=== PATIENT | female | born 1980 | race Asian ===

== ENCOUNTER 2016-06-18 10:14 | Inpatient (IN) | payer BC ==
[2016-06-18] MEDS ORDERED: ceFAZolin 2 GM/DEXTROSE 100 ML IV ONE (10:26)
[2016-06-18] MEDS ORDERED: CITRIC ACID/SODIUM CITRATE 30 ML UDCUP PO ONE (10:26)
[2016-06-18] MEDS ORDERED: LR 500 ML IV ONE (10:26)
[2016-06-18] MEDS ORDERED: LR 1,000 ML IV SCH (10:30)
[2016-06-18 11:26] LABS: % IMMATURE GRANULYOCYTES 1.3 % (0.0-1.1); ABSOLUTE IMMATURE GRANULOCYTES 0.08 10^3/uL (0.00-0.10); ADD DIFF? NO; ADD MORPH? NO; ADD SCAN? NO; ATYPICAL LYMPHOCYTE FLAG 20 (0-99); FRAGMENT RBC FLAG 0 (0-99); HEMATOCRIT 38.6 % (38.0-47.0); HEMOGLOBIN 13.3 g/dL (12.6-16.3); LEFT SHIFT FLG 0 (0-99); LIPEMIA HEMOLYSIS FLAG 90 (0-99); MEAN CELL HEMOGLOBIN 35.7 pg (27.9-34.1); MEAN CELL HEMOGLOBIN CONCENTR. 34.5 g/dL (32.4-36.7); MEAN CELL VOLUME 103.5 fL (81.5-99.8); MEAN PLATELET VOLUME 11.9 fL (8.7-11.7); PLATELET CLUMPS FLAG 0 (0-99); PLATELET COUNT 192 10^3/uL (150-400); RED BLOOD CELL COUNT 3.73 10^6/uL (4.18-5.33); RED CELL DISTRIBUTION WIDTH 12.1 % (11.5-15.2)
[2016-06-18] MEDS ORDERED: CEFAZOLIN 2 GM/DEXTROSE/100 ML BAG IV ONE (11:36)
[2016-06-18] MEDS ORDERED: morphINE PF 5 MG/10 ML INJ ONE (12:00)
[2016-06-18] MEDS ORDERED: fentaNYL 100 MCG/2 ML INJ ONE (12:00)
[2016-06-18] MEDS ORDERED: SIMETHICONE 80 MG TAB CHEW PO PRN (12:14)
[2016-06-18] MEDS ORDERED: ONDANSETRON 4 MG/2 ML VIAL ONE (12:21)
[2016-06-18] MEDS ORDERED: DEXAMETHASONE 4 MG/ML VIAL ONE ×2 (12:21)
[2016-06-18] MEDS ORDERED: OXYTOCIN 100 UNITS/10 ML VIAL ONE (12:21)
[2016-06-18] MEDS ORDERED: PHENYLEPHRINE HCL 100 MCG/ML SYR ONE ×3 (12:21→12:50)
--- NOTE | 2016-06-18 13:04 | OBPROC ---
- Delivery Pre-op Diagnoses: Breech presentation Post-op Diagnoses: Breech presentation Procedure: Primary Surgeon: Tracy Salamanca Beauty Culture Teacher: Lilibeth Jack Anesthesiologist: Power Ballesteros Shrimper/[employer]: Isis Adams Anesthesia: Spinal Complications: None IV Fluid (ml): 2,800 EBL: 1000 - [place] Info Infant A Delivery Date: 06/18/16 Delivery Time: 12:39 Sex of : Female Score (1 Min): 8 Score (5 Min): 8
--- NOTE | 2016-06-18 13:30 | GOP ---
[f rep st] OPERATIVE REPORT DATE OF OPERATION: 06/18/2016 SURGEON: Tracy Sage MD SANDWICH ARTIST: Lilibeth Jack CNM. ANESTHESIA: Spinal. PREOPERATIVE DIAGNOSIS: Intrauterine at 39-1/7 weeks' gestation with breech presentation. POSTOPERATIVE DIAGNOSIS: Intrauterine at 39-1/7 weeks gestation with breech presentation. PROCEDURE PERFORMED: Primary low transverse section. FINDINGS: Viable female , Apgars 8 and 8, born at 12:39, EBL 1000 mL. INDICATIONS: The patient is a G2, P0 female who is at39-1/7 weeks' gestation with breech presentati on, desires delivery. DESCRIPTION OF PROCEDURE: The patient was taken to the operating room. She was prepped and draped under normal sterile fashion in the dorsal supine position with a leftward tilt. The patient receiv ed 2 g of Ancef preoperatively. A Pfannenstiel skin incision was made with a scalpel and carried th rough to the underlying fascia. The fascia was incised in the midline and extended laterally. The superior aspect of the fascia was grasped with Triny clamps. The rectus muscles dissected off blun tly and with the Bovie cautery. The inferior aspect of the fascia was grasped with Triny clamps. The rectus muscles dissected off bluntly and with the Bovie cautery. The peritoneum was identified and entered in bluntly. The bladder blade was placed. The vesicouterine peritoneum was incised wit h the Metzenbaum scissors, and the bladder flap was created digitally. The bladder blade was replac ed. The uterus was incised. The was delivered. The cord was clamped and cut. Cord blood w as obtained. The infant was handed to the nurse practitioner. The placenta was delivered spontaneously. The uterus was exteriorized and cleared of all clots and debris. The uterine incisi on was reapproximated with 0 Monocryl in a running, locked fashion in 2 layers. The uterus was retu rned to the abdomen. The gutters were cleared of all clots and debris. The uterine incision was re inspected and noted to be hemostatic. The subfascial spaces were inspected and made hemostatic. Th e fascia was reapproximated with 0 Vicryl in a running fashion. The subcutaneous tissue was irrigat ed and closed with 3-0 Vicryl. The skin was closed with 4-0 Monocryl. All counts were correct x2. COMPLICATIONS: None. OUTCOME: Stable to recovery room. /[id number]/MODL
[2016-06-18] MEDS ORDERED: PHENYLEPHRINE HCL 100 MCG/ML SYR IVP PRN (15:01)
[2016-06-18] MEDS ORDERED: NALOXONE HCL 0.4 MG/ML INJ IVP PRN (15:01)
[2016-06-18] MEDS ORDERED: ONDANSETRON 4 MG/2 ML VIAL IVP PRN (15:01)
--- NOTE | 2016-06-18 15:06 | POSTANESTH ---
Post Anesthetic Evaluation Cardiovascular Status: Normal, Stable Respiratory Status: Normal, Stable, Similar to Pre-op Cond. Level of Consciousness/Mental Status: Can Participate in Eval, Alert and Oriented (Tolerated spinal well, BP treated, comfortable for surgery, to PACU, no pain or nausea.) Pain Control: Adequate, Prn Tx Ordered Nausea/Vomiting Control: Adequate, Prn Tx Ordered Complications Possibly Related to Anesthesia: None Noted
--- NOTE | 2016-06-18 15:09 | PREANESOB ---
Obstetric Pre-Anesthesia Info - General Info Proposed Procedure: C Section for breech. : 2 Para: 1 WBD: 39 - Info Status: Full Term Monitors: External FHR Baseline (bpm): 150 FHR Pattern: Reassuring - Labor Status Indications for Current Section: Breech Labor Epidural: No Anesthesia ROS: Prior non OB anesthesia without problems. Allergies/Adverse Reactions: Allergy/AdvReac Type Severity Reaction Status Date / Time No Known Allergies Allergy Unverified 07/20/15 10:00 Home Medications: Medication Instructions Recorded IRON PO DAILY 06/18/16 Vit27&Calcium/Iron/FA 1 each PO DAILY 06/18/16 [ Rx 1 Tablet (RX)] Visit Medications: Generic Name Dose Route Start Last Admin Trade Name Freq PRN Reason Stop Dose Admin Hydrocodone Bitart/Acetaminophen 1 - 2 tab 06/18/16 12:14 [place] 5/325 PO 06/28/16 12:13 Q4HRS PRN Pain, Moderate Diphenhydramine HCl 25 - 50 mg 06/18/16 15:01 Benadryl Injection IVP 12/15/16 15:00 Q6HRS PRN Itching Docusate Sodium 100 mg 06/18/16 12:14 Colace PO 12/15/16 12:13 BID PRN Constipation Lactated Ringer's 1,000 mls @ 125 mls/hr 06/18/16 10:30 06/18/16 11:15 Lr IV 12/15/16 10:29 1,000 mls CONT MARIUM Administration Ketorolac Tromethamine 30 mg 06/18/16 18:00 Toradol IVP 06/19/16 12:01 Q6HRS MARIUM Naloxone HCl 0.4 mg 06/18/16 15:01 Narcan IVP 06/19/16 15:03 PRN PRN respiratory depression Ondansetron HCl 4 mg 06/18/16 15:01 Zofran IVP 12/15/16 15:00 Q4HRS PRN Nausea/Vomiting, Can't Take PO Phenylephrine HCl 100 mcg 06/18/16 15:01 Behzad-Synephrine IVP 06/18/16 16:02 Q1M PRN Hypotension Simethicone 80 mg 06/18/16 12:14 Mylicon PO 12/15/16 12:13 .TIDMEALS AND HS PRN Gas Discontinued Medications Generic Name Dose Route Start Last Admin Trade Name Abelino PRN Reason Stop Dose Admin Cefazolin Sodium/Dextrose Confirm 06/18/16 11:36 Ancef 2 Gm (Premix) Administered 06/18/16 11:37 Dose 2 gm IV .STK-MED ONE Citric Acid/Sodium Citrate 30 ml 06/18/16 10:26 06/18/16 11:53 Bicitra PO 06/18/16 10:27 30 ml ONCALL ONE Administration Dexamethasone Confirm 06/18/16 12:21 Decadron Injection Administered 06/18/16 12:22 Dose 4 mg .ROUTE .STK-MED ONE Dexamethasone Confirm 06/18/16 12:21 Decadron Injection Administered 06/18/16 12:22 Dose 4 mg .ROUTE .STK-MED ONE Fentanyl Confirm 06/18/16 12:00 Sublimaze Administered 06/18/16 12:01 Dose 100 mcg .ROUTE .STK-MED ONE Cefazolin Sodium/Dextrose 100 mls @ 200 mls/hr 06/18/16 10:26 06/18/16 11:55 Ancef 2 Gm (Premix) IV 06/18/16 10:55 100 mls ONCALL ONE Administration Protocol Lactated Ringer's 500 mls @ 0 mls/hr 06/18/16 10:26 Lr IV 06/18/16 10:27 ONCE ONE As Directed Morphine Sulfate Confirm 06/18/16 12:00 Morphine Pf 5 Mg/10 Ml Administered 06/18/16 12:01 Dose 5 mg .ROUTE .STK-MED ONE Ondansetron HCl Confirm 06/18/16 12:21 Zofran Administered 06/18/16 12:22 Dose 8 mg .ROUTE .STK-MED ONE Oxytocin Confirm 06/18/16 12:21 Pitocin Administered 06/18/16 12:22 Dose 100 units .ROUTE .STK-MED ONE Phenylephrine HCl Confirm 06/18/16 12:21 Behzad-Synephrine Administered 06/18/16 12:22 Dose 1,000 mcg .ROUTE .STK-MED ONE Phenylephrine HCl Confirm 06/18/16 12:31 Behzad-Synephrine Administered 06/18/16 12:32 Dose 1,000 mcg .ROUTE .STK-MED ONE Phenylephrine HCl Confirm 06/18/16 12:50 Behzad-Synephrine Administered 06/18/16 12:51 Dose 1,000 mcg .ROUTE .STK-MED ONE - Anesthesia History Response to Local Anesthetics: Normal Anesthesia & Operative History: No Prior Problems Family Anesthesia History: Negative - Social History Substance Use/Abuse: Denies - Focused Exam Latest Vital Signs (Nursing): Temp Pulse Resp BP Pulse Ox 36.2 C 85 108/59 L 93 06/18/16 13:40 06/18/16 13:40 06/18/16 13:40 06/18/16 13:40 Blood Pressure: 119/76 Heart Rate: 82 Height/Weight (Nursing): Height 161.29 cm Weight 80.739 kg Physical Exam: Within normal limits. ASA Status: II Labs: 06/18/16 Unknown Patient ABO/Rh B POSITIVE 06/18/16 11:25 - Plan Consent Signed and on Chart: Yes Patient/Guardian Understands and Agrees to Plan: Yes
[2016-06-18] MEDS: KETOROLAC 30 MG/1 ML SDV IVP SCH (18:59)
[2016-06-19] MEDS: KETOROLAC 30 MG/1 ML SDV IVP SCH ×3 (00:33→12:35)
--- NOTE | 2016-06-19 08:10 | SOAPPROG ---
SOAP Progress Note Assessment/Plan: Assessment: 36 female PPD #1 s/p primary C/S for breech. Recovering well with good pain control. / pumping. Plan: Routine / post-op care. D/C mojica, IVBC, plexi-pulse stocking and abdominal bandage. Encourage ambulation. consult PRN. 06/19/16 08:06 Subjective: Reports feeling well with good pain control. / pumping. Incision CDI. Eating and drinking well without n/v. Appropriate mood with good support system. Objective: Vital Signs Temp Pulse Resp BP Pulse Ox 37.1 C 70 14 99/59 L 97 06/19/16 04:00 06/19/16 06:00 06/19/16 06:00 06/19/16 04:00 06/19/16 06:00 Laboratory Results 06/19/16 04:30 06/18/16 06/19/16 06/20/16 05:59 05:59 05:59 Intake Total 5450 Output Total 4050 Balance 1400 - Time Spent With Patient Time Spent With Patient: 20 minutes - Pending Discharge Pending Discharge Within 24 Hours: No Pending Discharge Within 48 Hours: Yes Pending Discharge Date: 06/21/16 Pending Discharge Time: 11:00 Physical Exam - Physical Exam General Appearance: WD/WN, alert, no apparent distress EENT: normal ENT inspection Neck: non-tender, full range of motion, normal inspection Respiratory: lungs clear, normal breath sounds Cardiac/Chest: regular rate, rhythm Abdomen: non-tender, soft Pelvic Exam: normal external exam Rectal: deferred Back: Normal inspection Skin: normal color, warm/dry Lymphatic: no adenopathy Extremities: non-tender, normal inspection Neuro/Psych: alert, normal mood/affect, oriented x 3 ICD10 Worksheet Patient Problems: Problems Problem Status Onset delivery indicated due to breech presentation Acute
[2016-06-19] MEDS: IRON POLYSAC/IRON HEME 28 MG TAB PO SCH (13:35)
[2016-06-19] MEDS: DOCUSATE SODIUM 100 MG CAP PO PRN (13:36)
[2016-06-19] MEDS: HYDROCODONE/APAP 5/325 TAB PO PRN ×3 (13:41→23:33)
[2016-06-19] MEDS: IBUPROFEN 600 MG TAB PO PRN (19:18)
[2016-06-20] MEDS: IBUPROFEN 600 MG TAB PO PRN ×4 (01:48→21:02)
[2016-06-20] MEDS: IRON POLYSAC/IRON HEME 28 MG TAB PO SCH (07:56)
[2016-06-20] MEDS: HYDROCODONE/APAP 5/325 TAB PO PRN ×3 (07:56→16:49)
[2016-06-20] MEDS: DOCUSATE SODIUM 100 MG CAP PO PRN (07:56)
--- NOTE | 2016-06-20 08:32 | SOAPPROG ---
SOAP Progress Note Assessment/Plan: Assessment: POD#2 s/p pLTCS for breech VSS Pain controlled Incision c/d/i Unclear etiology of intermittent chest pressure, is mild, no SOB/CP, normal exam. Will continue to monitor and consider further work-up if worsening or occurring more frequently Rh pos, Rub imm, s/p flu and tdap vaccines Plan: Routine post-op care Plan home tomorrow Routine precautions discussed Monitor symptom of chest pressure 06/20/16 08:30 Subjective: Kirsten/stacey working for pain control. Has intermittent feeling of mild chest pressure right in her mid chest between breasts, intermittent sensation that is only brief, but no shortness of breath, chest pain, dizziness, dyspnea. Ambulating, tolerating regular diet, had BM this AM. BF going well Objective: Vital Signs Temp Pulse Resp BP Pulse Ox 36.8 C 86 18 117/70 95 06/19/16 20:18 06/19/16 20:18 06/19/16 20:18 06/19/16 20:18 06/19/16 20:18 Laboratory Results 06/19/16 04:30 06/19/16 06/20/16 06/21/16 05:59 05:59 05:59 Intake Total 5450 Output Total 4050 3200 Balance 1400 -3200 Gen: sitting up , NAD, alert, awake Resp: unlabored CV: RRR Chest: nontender chest wall Abd: appropriately distended, soft, minimally tender Incision: c/d/i with steri strips Ext: no edema ICD10 Worksheet Patient Problems: Problems Problem Status Onset delivery indicated due to breech presentation Acute
[2016-06-21] MEDS: IBUPROFEN 600 MG TAB PO PRN ×4 (02:31→22:37)
--- NOTE | 2016-06-21 08:06 | SOAPPROG ---
SOAP Progress Note Assessment/Plan: Assessment: 36 female PPD #3 s/p primary C/S for breech. Recovering well with good pain control. Incision CDI. Ambulating well. / pumping. Plan: Routine / post-op care. consult to assist with pumping and supplementation. 06/19/16 08:06 06/21/16 08:02 Subjective: Reports experiencing good pain control. / pumping. Incision CDI. Ambulating well without vertigo. Eating and drinking well without vertigo. Appropriate mood with good support system. Planning on staying until tomorrow. Objective: Vital Signs Temp Pulse Resp BP Pulse Ox 36.6 C 84 16 116/75 95 06/20/16 20:00 06/20/16 20:00 06/20/16 20:00 06/20/16 20:00 06/20/16 20:00 Laboratory Results 06/19/16 04:30 06/20/16 06/21/16 06/22/16 05:59 05:59 05:59 Output Total 3200 Balance -3200 - Time Spent With Patient Time Spent With Patient: 20 minutes - Pending Discharge Pending Discharge Within 24 Hours: Yes Pending Discharge Date: 06/22/16 Pending Discharge Time: 11:00 Physical Exam - Physical Exam General Appearance: WD/WN, alert, no apparent distress EENT: normal ENT inspection Neck: non-tender, full range of motion, normal inspection Respiratory: lungs clear, normal breath sounds Cardiac/Chest: regular rate, rhythm Abdomen: non-tender, soft Pelvic Exam: normal external exam Rectal: deferred Back: Normal inspection Skin: normal color, warm/dry Lymphatic: no adenopathy Extremities: normal range of motion, non-tender, normal inspection Neuro/Psych: alert, normal mood/affect, oriented x 3 ICD10 Worksheet Patient Problems: Problems Problem Status Onset delivery indicated due to breech presentation Acute
[2016-06-21] MEDS: DOCUSATE SODIUM 100 MG CAP PO PRN ×2 (08:35→22:37)
[2016-06-21] MEDS: IRON POLYSAC/IRON HEME 28 MG TAB PO SCH (16:29)
[2016-06-21 20:10] VITALS: BP 122/81; PULSE 78; RESP 16; TEMP 97.7; O2SAT 96
[2016-06-22] MEDS: IBUPROFEN 600 MG TAB PO PRN ×2 (04:27→12:50)
[2016-06-22] MEDS: DOCUSATE SODIUM 100 MG CAP PO PRN (08:43)
[2016-06-22] MEDS: IRON POLYSAC/IRON HEME 28 MG TAB PO SCH (08:43)
--- NOTE | 2016-06-22 11:05 | OBPROG ---
OBG Progress Note Assessment/Plan: Assessment: 36 y/o POD#4 s/p primary LTCS for breech - doing well, ready for discharge Plan: - Discharge home - RX for motrin and norco - Pain/bleeding/fever precautions - F/U in 2 weeks or sooner prn 06/22/16 11:04 Subjective: Pt feeling well, ready for discharge. Ambulating, voiding, passing flatus and BM, no complaints. Objective: 06/19/16 04:30 Patient ABO/Rh B POSITIVE 06/18/16 11:25 Temp Pulse Resp BP Pulse Ox 36.5 C 78 16 122/81 H 96 06/21/16 19:45 06/21/16 19:45 06/21/16 19:45 06/21/16 19:45 06/21/16 19:45 - Physical Exam General Appearance: WD/WN, alert, no apparent distress Respiratory: lungs clear Cardiac/Chest: regular rate, rhythm Abdomen: normal bowel sounds, soft, other (incision c/d/i, steri strips intact) ICD10 Worksheet Patient Problems: Problems Problem Status Onset delivery indicated due to breech presentation Acute
== END 2016-06-22 13:30 | disposition home or self-care (01) | DRG 766 ==
LOC: FLD 10:14 → FOB 14:26
PROVIDERS: ADMIT Obstetrics & Gynecology; ATTEND Obstetrics & Gynecology
PROC: 10D00Z1 Extraction of Products of Conception, Low, Open Approach (ICD-10-PCS; principal; 2016-06-18)
DX: O32.1XX0 Maternal care for breech presentation, not applicable or unspecified (principal); O99.820 Streptococcus B carrier state complicating pregnancy; Z3A.39 39 weeks gestation of pregnancy; Z37.0 Single live birth
CPT/HCPCS: J0690; J1100; J1885; J2274; J2370; J2405; J2590; J3010